=== PATIENT | female | born 1965 | race Caucasian/White ===

== ENCOUNTER 2023-05-01 09:20 | Emergency (ER) | payer OTHER ==
[~2023-05-01] VITALS: Ht 154.9 cm; Wt 125.2 kg
[~2023-05-01 09:20] MED LIST: NABUMETONE500 MG PO; PERCOCET 5/3251 TAB PO
[2023-05-01] MEDS ORDERED: NORVASC5 MG PO (09:28)
[2023-05-01] MEDS ORDERED: IRBESARTAN300 MG PO (09:29)
[2023-05-01] MEDS ORDERED: AMLODIPINE-OLM1 EACH PO (09:29)
[2023-05-01] MEDS ORDERED: TUSNEL LIQUID178 ML PO (12:53)
[2023-05-01] MEDS ORDERED: IPRAT-ALBUT 0.5-3 ML IH (12:53)
[2023-05-01] MEDS ORDERED: ZITHROMAX500 MG PO (12:53)
[2023-05-01] MEDS ORDERED: MONTELUKAST SODI4 M1 PO (12:54)
== END 2023-05-01 13:50 | disposition home or self-care (01) ==
LOC: ER 09:20
PROVIDERS: General Practice
DX: J45.998 Other asthma (principal); Z20.822 Contact with and (suspected) exposure to COVID-19; I10 Essential (primary) hypertension

== ENCOUNTER 2023-05-11 10:31 | Inpatient (IN) | payer OTHER ==
[~2023-05-11] VITALS: Ht 154.9 cm; Wt 123.4 kg
[~2023-05-11 10:31] MED LIST changes: +AMLODIPINE-OLM1 EACH PO; +IPRAT-ALBUT 0.5-3 ML IH; +IRBESARTAN300 MG PO; +MONTELUKAST SODI4 M1 PO; +NORVASC5 MG PO; +TUSNEL LIQUID178 ML PO; +ZITHROMAX500 MG PO
[2023-05-14] MEDS ORDERED: AMLODIPINE BESY10 MG PO (12:58)
[2023-05-14] MEDS ORDERED: AVAPRO300 MG PO (12:58)
== END 2023-05-14 14:19 | disposition home or self-care (01) | DRG 203 ==
LOC: ER 10:31 → MEDJ 18:25 → SEC-K 18:25 → MEDJ 22:05
PROVIDERS: General Practice; ADMIT Internal Medicine; ATTEND Internal Medicine
PROC: 3E0F7GC Introduction of Other Therapeutic Substance into Respiratory Tract, Via Natural or Artificial Opening (ICD-10-PCS; principal; 2023-05-11)
DX: J45.901 Unspecified asthma with (acute) exacerbation (principal); I10 Essential (primary) hypertension

== ENCOUNTER 2023-08-23 13:09 | Inpatient (IN) | payer OTHER ==
[~2023-08-23] VITALS: Ht 154.9 cm; Wt 126.1 kg
[~2023-08-23 13:09] MED LIST changes: +AMLODIPINE BESY10 MG PO; +AVAPRO300 MG PO
[2023-08-23 15:57] LABS: HEMATOCRIT 32.8 % (36.0-45.00); MEAN CELL VOLUME 82.5 fL (80.00-100.00); MEAN CORPUSCULAR HEMOGLOBIN 27.7 pg (27.00-32.0); MEAN CORPUSCULAR HGB CONC 33.6 g/dl (32.0-36.0); PLATELET COUNT 257 K/uL (150-450); RED BLOOD COUNT 3.97 M/uL (4.00-6.00); RED CELL DISTRIBUTION WIDTH 12.7 % (11.5-14.5)
[2023-08-23 16:06] LABS: ABG PH 7.434 (7.35-7.45); ABG PO2 63.6 mmHg (80-100); ABG pCO2 37.9 mmHg (35-45); BASE EXCESS 0.8 mmol/l; BICARBONATE 24.8 mmol/l (23-25); SaO2 92.7 %
[2023-08-23 16:07] LABS: o2 21 %
[2023-08-23 16:08] LABS: allen test SATISFACTORY; puncture site BRADIAL LEFT
[2023-08-23 16:14] LABS: CALCIUM 8.8 mg/dL (8.5-10.1); CREATININE SERUM 1.14 mg/dL (0.55-1.02); GFR 49.3; POTASSIUM 3.65 mEq/L (3.5-5.1)
[2023-08-23 19:09] LABS: PH,URINE 5.5 (5.0-8.0); URINE APPEARANCE Cloudy; URINE BILIRRUBIN Negative (NEGATIVE); URINE BLOOD Negative; URINE COLOR Dark Yellow; URINE GLUCOSE Negative (NEGATIVE); URINE LEUKOCYTE Trace; URINE NITRATE Negative; URINE PROTEIN 30 (NEGATIVE)
[2023-08-23 19:21] LABS: URINE BACTERIA 440.9 uL (0.0-1933); URINE EPITHELIAL CELLS 117.1 uL (0.0-38.8); URINE RBC 14.2 uL (0.0-20.8); URINE WBC 13.1 uL (0.0-23.2)
[2023-08-23 20:44] LABS: ABG PH 7.414 (7.35-7.45); ABG PO2 76.7 mmHg (80-100); ABG pCO2 34.8 mmHg (35-45); BASE EXCESS -2.1 mmol/l; BICARBONATE 21.7 mmol/l (23-25); SaO2 95.3 %; Tco2 22.8 mmol/l; allen test SATISFACTORY; o2 21 %; puncture site RADIAL LEFT
[2023-08-24 06:46] LABS: HEMATOCRIT 32.4 % (36.0-45.00); MEAN CELL VOLUME 83.9 fL (80.00-100.00); MEAN CORPUSCULAR HEMOGLOBIN 28.4 pg (27.00-32.0); MEAN CORPUSCULAR HGB CONC 33.9 g/dl (32.0-36.0); PLATELET COUNT 266 K/uL (150-450); RED BLOOD COUNT 3.86 M/uL (4.00-6.00); RED CELL DISTRIBUTION WIDTH 12.8 % (11.5-14.5)
[2023-08-24 07:07] LABS: ERYTHROCYTE SEDIMENTATION RATE > 130 mm/hr
[2023-08-24 07:27] LABS: BILIRUBIN TOTAL 0.49 mg/dL (0.3-1.2); CALCIUM 8.7 mg/dL (8.5-10.1); CREATININE SERUM 1.15 mg/dL (0.55-1.02); GFR 48.81; GLOBULINA 4.9 G/DL (2.4-3.5); POTASSIUM 3.94 mEq/L (3.5-5.1); TOTAL PROTEIN 7.9 gm/dL (6.4-8.2)
[2023-08-24 07:57] LABS: INR 1.11; PARTIAL THROMBOPLASTIN TIME 37.9 SECONDS (22.0-34.0); PROTHROMBIN TIME 11.6 SECONDS (9.0-11.5)
[2023-08-24 14:46] LABS: ABG PH 7.392 (7.35-7.45); ABG pCO2 40.4 mmHg (35-45)
[2023-08-24 14:47] LABS: ABG PO2 104.9 mmHg (80-100); BASE EXCESS -0.8 mmol/l; SaO2 97.9 %; Tco2 25.3 mmol/l; allen test SATISFACTORY; o2 32 %; puncture site BRADIAL LEFT
[2023-08-26 19:22] LABS: ABG PH 7.415 (7.35-7.45); ABG PO2 73.3 mmHg (80-100); ABG pCO2 39.4 mmHg (35-45); BASE EXCESS 0.2 mmol/l; BICARBONATE 24.7 mmol/l (23-25); SaO2 94.8 %; Tco2 25.9 mmol/l; o2 21 %; puncture site RADIAL RIGHT
[2023-08-26 19:23] LABS: allen test SATISFACTORY
== END 2023-08-28 16:10 | disposition home or self-care (01) | DRG 203 ==
LOC: ER 13:10 → MEDJ 20:56
PROVIDERS: General Practice; Nurse Practitioner Family; ADMIT Internal Medicine; ATTEND Internal Medicine
DX: J45.901 Unspecified asthma with (acute) exacerbation (principal); I10 Essential (primary) hypertension; I12.9 Hypertensive chronic kidney disease with stage 1 through stage 4 chronic kidney disease, or unspecified chronic kidney disease; N18.9 Chronic kidney disease, unspecified; E66.8 Other obesity; Z20.822 Contact with and (suspected) exposure to COVID-19